=== PATIENT | female | born 2000 | race Hispanic/Latino ===

== ENCOUNTER 2024-03-18 09:16 | Emergency (ER) | payer OTHER ==
[~2024-03-18] VITALS: Ht 180.3 cm; Wt 94.5 kg
[2024-03-18] MEDS: ACETAMINOPHEN 325 MG TAB PO ONE (11:10)
[2024-03-18 11:35] VITALS: BP 121/75; TEMP 98.3; O2SAT 99
== END 2024-03-18 11:40 | disposition home or self-care (01) ==
LOC: M ED 09:16
DX: J09.X2 Influenza due to identified novel influenza A virus with other respiratory manifestations (principal); F41.9 Anxiety disorder, unspecified